=== PATIENT | female | born 2000 | race African-American/Black ===

== ENCOUNTER 2019-07-27 04:18 | Emergency (ER) | payer SELFPAY ==
[~2019-07-27] VITALS: Ht 160 cm; Wt 68.2 kg
[2019-07-27] MEDS ORDERED: FLUT100D2 IH (04:24)
[2019-07-27] MEDS ORDERED: ALBU8HFA IH (04:24)
[2019-07-27] MEDS ORDERED: ALBUTEROL SULFATE 2.5 MG/0.5 ML NEB SOLUTION NEB ONE (04:30)
[2019-07-27] MEDS ORDERED: IPRATROPIUM BROMIDE 0.5 MG/2.5 ML NEB SOLUTION NEB ONE (04:30)
[2019-07-27] MEDS ORDERED: MAGNESIUM SULFATE 2 GM/WATER 50 ML IV ONE (04:45)
[2019-07-27] MEDS ORDERED: MethylPREDNISolone SOD SUCC 125 MG/2 ML VIAL IVP ONE (04:45)
[2019-07-27] MEDS ORDERED: SODIUM CHLORIDE 0.9% 1,000 ML IV ONE (04:45)
[2019-07-27] MEDS ORDERED: ALBUTEROL SULFATE 5 MG/ML 20 ML NEB SOLN [BULK] NEB ONE (05:15)
[2019-07-27 05:39] VITALS: BP 133/64
== END 2019-07-27 06:02 | disposition home or self-care (01) ==
LOC: EMS 04:18
DX: J45.901 Unspecified asthma with (acute) exacerbation (principal)
CPT/HCPCS: 71045; 94640; 96365; 96375; 99283; J3475; J7030; 94060; J2930